=== PATIENT | male | born 1965 | race Two or more races ===

== ENCOUNTER 2021-01-11 20:27 | Emergency (ER) | payer OTHER ==
[~2021-01-11] VITALS: Ht 167.6 cm; Wt 72.6 kg
[~2021-01-11 20:27] MED LIST: RYBIX ODT50 MG; [UNRECOGNIZED DRUG - REMARK]
[2021-01-11] MEDS ORDERED: SINGULAIR4 M1 PO (20:38)
[2021-01-11] MEDS ORDERED: NEURONTIN800 MG PO (20:39)
[2021-01-11] MEDS ORDERED: VENTOLIN HFA18 GM IH (20:39)
[2021-01-11] MEDS ORDERED: ADVAIR 100-501 EACH IH (20:39)
[2021-01-11] MEDS ORDERED: NAPROXEN375 MG PO (22:21)
[2021-01-11] MEDS ORDERED: [UNRECOGNIZED DRUG - OTHER] OP (22:21)
== END 2021-01-11 22:33 | disposition home or self-care (01) ==
LOC: ER 20:27
DX: T15.92XA Foreign body on external eye, part unspecified, left eye, initial encounter (principal)

== ENCOUNTER → 2021-03-01 | Emergency (ER) | payer OTHER ==
[~2021-03-01] VITALS: Ht 167.6 cm; Wt 70.3 kg
[~2021-03-01] MED LIST changes: +ADVAIR 100-501 EACH IH; +BUDESONIDE0.5 MG/2 M IH; +IPRAT-ALBUT 0.5-3 ML IH; +MEDROLPACK PO; +MUCINEX DM ER1 EAC1 PO; +NAPROXEN375 MG PO; +NEURONTIN800 MG PO; +SINGULAIR4 M1 PO; +VENTOLIN HFA18 GM IH; +[UNRECOGNIZED DRUG - OTHER] OP
== END | disposition left against medical advice (07) ==
LOC: ER 04:25
DX: J45.998 Other asthma (principal); Z11.52 Encounter for screening for COVID-19

== ENCOUNTER 2021-03-02 09:16 | Inpatient (IN) | payer OTHER ==
[~2021-03-02] VITALS: Ht 167.6 cm; Wt 70.3 kg
[~2021-03-02 09:16] MED LIST changes: -BUDESONIDE0.5 MG/2 M IH; -IPRAT-ALBUT 0.5-3 ML IH; -MEDROLPACK PO; -MUCINEX DM ER1 EAC1 PO
== END 2021-03-02 19:40 | disposition left against medical advice (07) | DRG 203 ==
LOC: ER 09:16 → SEC-K 18:11
PROVIDERS: ADMIT Internal Medicine; ATTEND Internal Medicine
PROC: BW2410Z Computerized Tomography (CT Scan) of Chest and Abdomen using Low Osmolar Contrast, Unenhanced and Enhanced (ICD-10-PCS; principal; 2021-03-01)
PROC: 4A033R1 Measurement of Arterial Saturation, Peripheral, Percutaneous Approach (ICD-10-PCS; 2021-03-01)
PROC: 3E0F7GC Introduction of Other Therapeutic Substance into Respiratory Tract, Via Natural or Artificial Opening (ICD-10-PCS; 2021-03-01)
DX: J45.901 Unspecified asthma with (acute) exacerbation (principal)

== ENCOUNTER 2021-03-13 03:23 | Emergency (ER) | payer OTHER ==
[~2021-03-13] VITALS: Ht 167.6 cm; Wt 69.9 kg
[2021-03-13] MEDS ORDERED: IPRAT-ALBUT 0.5-3 ML IH (14:29)
[2021-03-13] MEDS ORDERED: MUCINEX DM ER1 EAC1 PO (14:29)
[2021-03-13] MEDS ORDERED: MEDROLPACK PO (14:29)
[2021-03-13] MEDS ORDERED: BUDESONIDE0.5 MG/2 M IH (14:29)
== END 2021-03-13 14:41 | disposition home or self-care (01) ==
LOC: ER 03:23
DX: J45.998 Other asthma (principal); J18.9 Pneumonia, unspecified organism

== ENCOUNTER 2021-03-31 01:56 | Inpatient (IN) | payer OTHER ==
[~2021-03-31] VITALS: Ht 167.6 cm; Wt 71.7 kg
[~2021-03-31 01:56] MED LIST changes: +BUDESONIDE0.5 MG/2 M IH; +IPRAT-ALBUT 0.5-3 ML IH; +MEDROLPACK PO; +MUCINEX DM ER1 EAC1 PO
[2021-04-03] MEDS ORDERED: PREDNISONE10 M2 PO (13:08)
[2021-04-03] MEDS ORDERED: CEFDINIR300 MG PO (13:08)
== END 2021-04-03 14:13 | disposition home or self-care (01) | DRG 203 ==
LOC: ER 01:56 → MEDI 11:51
PROVIDERS: ADMIT Internal Medicine; ATTEND Internal Medicine
PROC: 4A033R1 Measurement of Arterial Saturation, Peripheral, Percutaneous Approach (ICD-10-PCS; principal; 2021-03-31)
PROC: 3E0F7SF Introduction of Other Gas into Respiratory Tract, Via Natural or Artificial Opening (ICD-10-PCS; 2021-03-31)
DX: J45.51 Severe persistent asthma with (acute) exacerbation (principal); R09.02 Hypoxemia; D72.828 Other elevated white blood cell count; Z20.822 Contact with and (suspected) exposure to COVID-19

== ENCOUNTER 2021-06-08 07:17 | Emergency (ER) | payer OTHER ==
[~2021-06-08] VITALS: Ht 167.6 cm; Wt 68.9 kg
[~2021-06-08 07:17] MED LIST changes: +CEFDINIR300 MG PO; +PREDNISONE10 M2 PO
[2021-06-08] MEDS ORDERED: MUCINEX1200 MG PO (12:20)
[2021-06-08] MEDS ORDERED: MEDROLPACK PO (12:20)
[2021-06-08] MEDS ORDERED: ZITHROMAX500 MG PO (12:20)
== END 2021-06-08 12:32 | disposition home or self-care (01) ==
LOC: ER 07:17
DX: J45.902 Unspecified asthma with status asthmaticus (principal); R06.02 Shortness of breath; R05 Cough

== ENCOUNTER 2021-08-22 03:23 | Inpatient (IN) | payer OTHER ==
[~2021-08-22] VITALS: Ht 167.6 cm; Wt 69.4 kg
[~2021-08-22 03:23] MED LIST changes: +MUCINEX1200 MG PO; +ZITHROMAX500 MG PO
[2021-08-25] MEDS ORDERED: IPRATROPIU0.2 MG/1 M IH (10:38)
[2021-08-25] MEDS ORDERED: BUDESONIDE0.5 MG/2 M IH (10:39)
[2021-08-25] MEDS ORDERED: XOPENEX CO1.25 MG/0. IH (10:39)
[2021-08-25] MEDS ORDERED: BENZONATATE100 MG PO (10:39)
[2021-08-25] MEDS ORDERED: BUTALB-ACETAMI1 EACH PO (10:46)
== END 2021-08-25 11:00 | disposition home or self-care (01) | DRG 203 ==
LOC: ER 03:23 → MEDI 12:55
PROVIDERS: ADMIT Internal Medicine; ATTEND Internal Medicine
PROC: 3E0F7SF Introduction of Other Gas into Respiratory Tract, Via Natural or Artificial Opening (ICD-10-PCS; principal; 2021-08-22)
DX: J45.41 Moderate persistent asthma with (acute) exacerbation (principal); Z72.0 Tobacco use; R09.02 Hypoxemia; Z20.822 Contact with and (suspected) exposure to COVID-19

== ENCOUNTER 2021-11-08 03:30 | Inpatient (IN) | payer OTHER ==
[~2021-11-08] VITALS: Ht 167.6 cm; Wt 70.8 kg
[~2021-11-08 03:30] MED LIST changes: +BENZONATATE100 MG PO; +BUTALB-ACETAMI1 EACH PO; +IPRATROPIU0.2 MG/1 M IH; +XOPENEX CO1.25 MG/0. IH
--- NOTE | 2021-11-08 03:58 | NUR ---
PACIENTE ALERTA Y ORIENTADO X3. REFIERE DESDE HACE 5 THOMPSON ESTA PRESENTANDO ASMA Y NGUYEN TRATAMIENTO MEDICO NO LE ESTA AYUDANDO. PACIENTE REFIERE TIENE TOS PRODUCTIVA A VECES. SATURANDO OXIGENO MANUAL A 94%. SE UBICO EN UNIDAD DE ASMA UNIT. SE PRESENTO A DR. MENDOZA.
--- NOTE | 2021-11-08 04:58 | NUR ---
TX. OFRECIDO POR MIS. MARQUEZ QUIEN ORIENTA AL PACIENTE SOBRE EL TX. EXTRAE MUESTRAS DE DARYN BAJO MEDIDAS ASEPTICAS, ROTULA Y ENVIA AL LABORATORIO. CANALIZA Y ADMINISTRA MEDICAMENTOS MONA ORDEN MEDICA.
--- NOTE | 2021-11-08 05:58 | NUR ---
TERAPIAS Y VENTURY MASK NOTIFICADOS A WAGNER DE CUIDADO RESPIRATORIO.
--- NOTE | 2021-11-08 07:53 | NUR ---
SE RECIBE PTE ALERTA Y ORIENTADO EN EL AREA DE CENTRO DE PECHO EN CAMA CON BARANDAS ELEVADA Y TIMBRE ACCESIBLE CONECTADO A MONITOR CARDIACO Y OXYMETRIA DE PULSO PTE NO PRESENTA DOLOR AL MOMENTO, PTE SE OBSERVA VENTURY AL 50% PTE SE MANTIENE EN OBSERVACION Y BAJO TRATAMIENTO EN ESPERA DE INTERNISTA.
== END 2021-11-11 23:21 | disposition home or self-care (01) | DRG 203 ==
LOC: ER 03:30 → SEC-K 10:26 → MEDI 10:26 → SEC-K 16:22 → MEDI 17:21
PROVIDERS: ADMIT Internal Medicine; ATTEND Internal Medicine
DX: J45.41 Moderate persistent asthma with (acute) exacerbation (principal); R09.02 Hypoxemia; Z20.822 Contact with and (suspected) exposure to COVID-19

== ENCOUNTER 2021-12-05 15:45 | Inpatient (IN) | payer OTHER ==
[~2021-12-05] VITALS: Ht 167.6 cm; Wt 70.3 kg
[2021-12-05] MEDS ORDERED: XANAX XR0.5 MG PO (15:58)
[2021-12-05] MEDS ORDERED: XANAX XR2 MG PO (15:59)
--- NOTE | 2021-12-05 15:59 | NUR ---
SE RECIBE PT ALERTA Y ORIENTADO X3 QUIEN REFIERE QUE LLEVA DOS O DAYNA THOMPSON CON DIFICULTAD RESPIRATORIA, PT CON DIAGNOSTICO DE ASMA Y HOPITALIZADO HACE POCO TIEMPO POR ASMA. PT CON 91% DE SATURACION AL MOMENTO DEL TRIAGE, NO HABLA EN ORACIONES COMPLETAS YA QUE SE ASFIXIA. SE MONITOREAN S/V Y SE UBICA EN AU.
--- NOTE | 2021-12-05 16:34 | NUR ---
SE LE ORIENTA A PACIENTE SOBRE LAS ORDENES MEDICAS, REFIERE ENTEDER LAS MISMAS. SE CANALIZA Y SE LE COLOCA IVF'S, SE LE ADMINISTRAN LOS MEDICAMENTOS, SE LE MAUREEN LAS MUETRAS DE DARYN Y SE NOTIFICA LOS ABG'S, MONA LAS ORDENES MEDICAS.
--- NOTE | 2021-12-05 23:16 | NUR ---
SE RECIBE PACIENTE DE TURNO ANTERIOR, ALERTA Y ORIENTADO EN TIEMPO LUGAR Y PERSONA. UBICADO EN UNIDAD DE ASMA. CON VENOPUNCION PATENTE, AMBROSIO DE ERITEMA Y EDEMA, RECIBIENDO AL MOMENTO 0.9 NSS 1000ML A 80ML/HR. PENDIENTE RE-EVALUACION MEDICA. SE ORIENTA SOBRE CONTINUIDAD DE CUIDADO Y TRATAMIENTO DE ENFERMERIA, EL MISMO VERBALIZA ENTENDER. SE MANTIENE EN OBSERVACION POR CAMBIOS.
--- NOTE | 2021-12-05 23:53 | NUR ---
SE OBSERVA A PACIENTE CON TOS PRODUCTIVA Y DIFICULTAD RESPIRATORIA. SE MAUREEN SIGNOS VITALES, PACIENTE SATURANDO 90% MEDIANTE OXIMETRIA DE PULSO. SE NOTIFICA ESTADO DE PACIENTE A DR. CARRION, EL MISMO REFIERE COLOCAR VENTURY MASK AL 50%. SE UBICA PACIENTE EN ABISAI #10, EN POSICION AMADOR. PACIENTE AL MOMENTO SATURANDO 96% MEDIDO POR OXIMETRIA DE PULSO. PACIENTE ESTABLE AL MOMENTO.
--- NOTE | 2021-12-06 07:24 | NUR ---
SE RECIBE PTE MASCULINO DE 56 YRS ALERTA CONCIENTE Y TRANQUILO EN CAMA CON BARABDAS ELEVADA. PTE SE OBSERVA CON VENTURY MASK AL50% Y CONSULTA CON EL DR, TRIPP LA CUAL SE MANTIENE NOTIFICADO. SE OBSERVA POR CAMBIOS EN NGUYEN CONDICION.
== END 2021-12-12 15:00 | disposition home or self-care (01) | DRG 202 ==
LOC: ER 15:45 → MEDJ 12-06 11:11
PROVIDERS: ADMIT Internal Medicine; ATTEND Internal Medicine
PROC: 3E0F7GC Introduction of Other Therapeutic Substance into Respiratory Tract, Via Natural or Artificial Opening (ICD-10-PCS; 2021-12-05)
PROC: 5A0945A Assistance with Respiratory Ventilation, 24-96 Consecutive Hours, High Flow/Velocity Cannula (ICD-10-PCS; 2021-12-05)
PROC: BW24YZZ Computerized Tomography (CT Scan) of Chest and Abdomen using Other Contrast (ICD-10-PCS; principal; 2021-12-06)
DX: J45.901 Unspecified asthma with (acute) exacerbation (principal); J18.8 Other pneumonia, unspecified organism; J45.902 Unspecified asthma with status asthmaticus; J44.9 Chronic obstructive pulmonary disease, unspecified; B19.20 Unspecified viral hepatitis C without hepatic coma; F17.200 Nicotine dependence, unspecified, uncomplicated; Z20.822 Contact with and (suspected) exposure to COVID-19; R09.02 Hypoxemia

== ENCOUNTER 2022-02-16 04:46 | Emergency (ER) | payer OTHER ==
[~2022-02-16] VITALS: Ht 167.6 cm; Wt 68.9 kg
[~2022-02-16 04:46] MED LIST changes: +XANAX XR0.5 MG PO; +XANAX XR2 MG PO
== END 2022-02-16 14:48 | disposition home or self-care (01) ==
LOC: ER 04:46
DX: J45.901 Unspecified asthma with (acute) exacerbation (principal); R06.02 Shortness of breath; Z20.822 Contact with and (suspected) exposure to COVID-19; Z88.8 Allergy status to other drugs, medicaments and biological substances